=== PATIENT | female | born 1950 | race Caucasian/White ===

== ENCOUNTER 2022-11-12 10:07 | Inpatient (IN) | payer MEDICARE, OTHER ==
[2022-11-12] VITALS (12 sets, daily range): BP systolic 126–177; BP diastolic 63–78; PULSE 55–71; TEMP 97.9–98.4
[~2022-11-12] VITALS: Ht 160 cm; Wt 59.0 kg
[2022-11-12 11:13] LABS: HEMATOCRIT 39.5 % (37.0-47.0); HEMOGLOBIN 13.3 g/dl (12.5-16.0); MEAN CELL VOLUME 88 fl (80.0-100.0); MEAN CORPUSCULAR HEMOGLOBIN 30 pg (27-31); MEAN CORPUSCULAR HGB CONC 34 g/dl (33.0-37.0); MEAN PLATELET VOLUME 9.9 fl (7.4-10.4); PLATELET COUNT 227 K/mm3 (130-400); RED BLOOD COUNT 4.48 M/mm3 (4.10-5.30); REDCELL DISTRIBUTION WIDTH-CV 13.1 % (11.5-14.5)
[2022-11-12] MEDS ORDERED: CRESTOR20 MG PO (11:18)
[2022-11-12] MEDS ORDERED: PRINIVIL20 MG PO (11:19)
[2022-11-12 11:20] LABS: INR 1.1 (0.8-3.0); PROTHROMBIN TIME 12.2 SECONDS (9.7-12.8)
[2022-11-12] MEDS ORDERED: NORVASC 5MG5 MG/TAB PO (11:24)
[2022-11-12] MEDS ORDERED: ASPIRIN E.C. 8181 MG PO (11:24)
[2022-11-12 11:30] LABS: CALCIUM 9.4 mg/dL (8.4-10.2); CREATININE, serum 1.08 mg/dL (0.57-1.11); POTASSIUM 4.3 mmol/L (3.5-4.5)
--- NOTE | 2022-11-12 12:21 | NUR ---
SEE MERGE FOR PROCEDURE, VITAL SIGNS, MEDICATIONS, EQUIPMENT, AND OTHER PROCEDURAL NOTES
--- NOTE | 2022-11-12 13:30 | NUR ---
CLINICAL OUTCOMES MANAGER HAYDEN HAS CALLED MULTIPLE TIMES REGARDING PATIENTS TELEMETRY "BEING PULLED OFF." TELE MONITO ABILIO MADE AWARE RN AND PCT HAVE CHANGE PATIETNS STICKERS AND CHANGED THEIR PLACE MULTIPLE TIMES, EACH TIME TELE MONIOTOR TECH STATES HE STILL CANNOT READ A RYTHM. PER TELE FORESTRY AIDE NEW WIRES ARE NEEDED.
--- NOTE | 2022-11-12 13:45 | NUR ---
PCT CHANGED WIRES FOR PATIENTS TELEMETRY BOX.
--- NOTE | 2022-11-12 13:45 | NUR ---
PATIENT ARRIVED IN STABLE CONDITION. NO NEEDS OR COMPLAINTS AT THIS TIME. DRESSING TO PACEMAKER INSERTION SITE CLEAN DRY AND INTACT. VITAL SIGNES STABLE AT THIS TIME. AT BEDSIDE. PATIENT ORIENTED TO ROOM INCLUDING CALL LIGHT AND PHONE USE. CALL LIGHT WITH IN REACH.
--- NOTE | 2022-11-12 16:40 | NUR ---
THIS RN HAS RECIEVED TWO CALLS FROM BASEBALL INSPECTOR AND REPAIRER [employer]. ADVISED HIM THIS RN IS CURRENTLY IN THE ROOM WITH THE ADMINISTRATIVE SERVICES MANAGER. PATIENTS TELMETRY LEADS AND STICKERS ALL INTACT WITH NO ISSUE. ADVISED HIM IM UNAWARE OF WHAT ELSE WE CAN DO IF WE HAVE REMOVED AND REPLACED AND REARRANGED THE PATIENTS STICKERS MULTIPLE TIMES, WELL CHANGED OUT THE WIRE LEADS. [employer] RESPONDED WITH "WELL IM JUST TELLING YOU I CANT READ IT." T
--- NOTE | 2022-11-12 16:45 | NUR ---
THIS RN WAS JUST NOTIFIED BY THE CHARGE NURSE THAT CHEMICAL PROJECT ENGINEER ERNESTINA BLAKE STATED WE NEED TO COME GET A NEW BOX FOR THIS PATIENT. INFORMED THE TOWN CLERK OF THE PREVIOUS DISCUSSION WITH HIM AND THAT HE DID NTO MENTION THAT TO ME.
--- NOTE | 2022-11-12 22:05 | NUR ---
Pt shift assessment completed at 2044. A&O x4. Very pleasant and denying any pain or discomfort. According to pt, SOB is similar to when she came to the unit, and reports that didn't experience any worsening of the symptoms. Dressing on Left side is CDI. No edema or redness. BP was 177/72 at the time of assessment. All medication, including BP meds were given per emar. Will recheck BP after xray. Around 2099, pt was off the unit for Chest XR. Pt is back to the unit around 2129.
--- NOTE | 2022-11-12 22:30 | NUR ---
Per Cheryl SMITH, verbal orders received to monitor pt VS and any respiratory problem closely due to results showed on Chest XR. (See report). Pt denying any SOB, chest pain or resp. symptoms at this time. Call light is within reach.
--- NOTE | 2022-11-12 22:37 | NUR ---
Monitor pt O2 sats and any sudden chest pain or per verbal orders from LUIS Luna to this ARCHITECTURAL DRAFTSPERSON, due to possible surgical procedure in the morning.
[2022-11-13 03:56] VITALS: BP 147/65; PULSE 66; TEMP 98.3
[2022-11-13 07:00] VITALS: BP 119/71; PULSE 70; TEMP 98.3
--- NOTE | 2022-11-13 07:27 | NUR ---
CALLED RADIOLOGY AND SPOKE WITH ANNALISE, INFORMED HIM THIS PATIENT HAS A SCHEDULED CXR FOR 0700, AND HAS AN ACTIVE LEFT PNEUMOTHORAX THAT WE ARE CHECKING ON. ANNALISE VERBALIZED UNDERSTANDING.
--- NOTE | 2022-11-13 09:21 | NUR ---
ROSSY met with the patient to discuss discharge plan. The patient lives in [place] with her , Kolby (ph#[phone]). She reports independence with ADLs and does not have any DME. The patient's PCP is Dr. Newton Angel and she receives her medications from [facility]. The patient does not have a DPOA-HC, but she was interested in obtaining a form. ROSSY provided. The patient plans to return home with her upon discharge. No additional needs at this time. *Discharge plan: home with *
--- NOTE | 2022-11-13 09:30 | NUR ---
Initial visit; Patient thanked Rail Setter for looking in on her and offering God's blessings. Patient doing well enough to be thinking about being discharged.
--- NOTE | 2022-11-13 10:58 | NUR ---
PATIENT TOLERATED CHEST TUBE PLACEMENT WELL. CHEST TUBE LINE SECURE TO PATIENT. CEHST TUBE CURRENTLY ON CONTINUOUS SUCTION, PER PHYSICIAN ORDER. PATIENT RESTING IN BED. CXR FOR CONFIRMATION COMPLETED.
[2022-11-13 11:00] VITALS: BP 152/72; PULSE 66; TEMP 98
[2022-11-13 15:28] VITALS: BP 128/68; PULSE 70; TEMP 97.5
--- NOTE | 2022-11-13 16:45 | NUR ---
THIS RN WAS INFORMED BY RT THAT THEY PUT HER BACK ON ROOM AIR. I INFORMED RT THAT THE PATIETN IS TO REMAIN ON 2LNC PER THE SECONDARY SPECIAL EDUCATION TEACHER ORDERS, REGARDLESS IF HER O2 SAT INDICATES SHE COULD BE DECREASED OR TAKEN OFF. WILL PASS ALONG TO NIGHT RN. 2LNC REAPPLIED TO PATIENT. PATIENT VERBALIZES UNDERSTANDING OF THIS.
[2022-11-13 20:39] VITALS: BP 141/68; PULSE 73; TEMP 98.5
[2022-11-13 23:38] VITALS: BP 11/54; BP 112/54; PULSE 83; TEMP 98.5
[2022-11-14 04:16] VITALS: BP 122/72; PULSE 57; TEMP 98.1
--- NOTE | 2022-11-14 04:16 | NUR ---
0415 SUCTION DISCONNECTED FROM PATIENTS CHEST TUBE PER NURSES NOTE
[2022-11-14 05:30] VITALS: BP 119/48; PULSE 59; TEMP 98.4
[2022-11-14 07:32] LABS: BASO # 0.1 K/mm3 (0.0-0.2); BASO % 1.1 % (0.0-2.0); EOS # 0.3 K/mm3 (0.0-0.7); EOS % 4.2 % (0.0-4.0); GRAN # 4.2 K/mm3 (1.4-6.5); GRAN % 52.8 % (42.2-75.2); HEMATOCRIT 40.4 % (37.0-47.0); HEMOGLOBIN 13.3 g/dl (12.5-16.0); LYMPH # 2.6 K/mm3 (1.2-3.4); MEAN CELL VOLUME 89 fl (80.0-100.0); MEAN CORPUSCULAR HEMOGLOBIN 29 pg (27-31); MEAN CORPUSCULAR HGB CONC 33 g/dl (33.0-37.0); MEAN PLATELET VOLUME 10.1 fl (7.4-10.4); MONO # 0.7 K/mm3 (0.1-0.6); MONO % 8.5 % (1.7-9.3); PLATELET COUNT 191 K/mm3 (130-400); RED BLOOD COUNT 4.52 M/mm3 (4.10-5.30); REDCELL DISTRIBUTION WIDTH-CV 13.1 % (11.5-14.5)
[2022-11-14 08:01] LABS: CALCIUM 9.2 mg/dL (8.4-10.2); CREATININE, serum 1.14 mg/dL (0.57-1.11); POTASSIUM 4.1 mmol/L (3.5-4.5)
[2022-11-14 08:11] VITALS: BP 122/65; PULSE 71; TEMP 97.9
--- NOTE | 2022-11-14 10:31 | NUR ---
Follow-up visit; Patient was surprised but seemed happy to see Nursing Care Partner again. She said she has another day here because her tube disconnected so they need another night to make certain all is well with her. Nursing Care Partner wished María well and offered God's blessings.
--- NOTE | 2022-11-14 10:42 | NUR ---
Pt Ox4, VSS. Continues on 1L O2 via NC per pulm instruction. Chest tube remains intact to water seal. Placed back on continuous suction @ 75mmHg by Dr. Matthews post CXR. No add'l output to waterseal container. Pt denies SOB. Had c/o discomfort at chest tube insertion site. Place tegaderm to site which alleviated discomfort. Steristrips remain intact to L shoulder pacer incision. Area CDI. Continues on telemetry, Paced 80bpm.
[2022-11-14 11:12] VITALS: BP 112/59; PULSE 73; TEMP 98.1
[2022-11-14 15:52] VITALS: BP 124/66; PULSE 71; TEMP 98.4
[2022-11-14 20:26] VITALS: BP 121/65; PULSE 75; TEMP 98.7
[2022-11-15] VITALS (7 sets, daily range): BP systolic 114–129; BP diastolic 55–71; PULSE 66–88; TEMP 97.3–98.7
--- NOTE | 2022-11-15 04:05 | NUR ---
0403 rn turned off suction for patients chest tube. chest tube still completely intact no parts disconnected.
--- NOTE | 2022-11-15 06:07 | NUR ---
OVERNIGHT PATIENT REPORTED PAIN ONLY ONCE RIGHT BEFORE BED. VITAL SIGNS REMAINED WITHIN NORMAL LIMITS. PT ABLE TO AMBULATE TO RESTROOM WITHOUT ASSISTANCE. CHEST TUBE SUCTION WAS TURNED OFF AT 0403. AT 0530 PT CALLED RN INTO ROOM STATING THAT SHE IS WORRIED THAT SHE COULD HAVE A BLOOD CLOT ON HER LEFT LEG. RN ASSESSED LOCATION AND THERE WAS NO REDNESS OR SWELLING PRESENT AT LOCATION.
[2022-11-15 06:14] LABS: BASO # 0.1 K/mm3 (0.0-0.2); BASO % 1.2 % (0.0-2.0); EOS # 0.4 K/mm3 (0.0-0.7); EOS % 6.3 % (0.0-4.0); GRAN # 3.2 K/mm3 (1.4-6.5); GRAN % 46.1 % (42.2-75.2); HEMATOCRIT 40.9 % (37.0-47.0); HEMOGLOBIN 13.1 g/dl (12.5-16.0); LYMPH # 2.5 K/mm3 (1.2-3.4); MEAN CELL VOLUME 92 fl (80.0-100.0); MEAN CORPUSCULAR HEMOGLOBIN 29 pg (27-31); MEAN CORPUSCULAR HGB CONC 32 g/dl (33.0-37.0); MEAN PLATELET VOLUME 10.1 fl (7.4-10.4); MONO # 0.6 K/mm3 (0.1-0.6); MONO % 9.3 % (1.7-9.3); PLATELET COUNT 184 K/mm3 (130-400); RED BLOOD COUNT 4.46 M/mm3 (4.10-5.30); REDCELL DISTRIBUTION WIDTH-CV 13.2 % (11.5-14.5)
[2022-11-15 06:39] LABS: CALCIUM 9.4 mg/dL (8.4-10.2); CREATININE, serum 0.96 mg/dL (0.57-1.11); POTASSIUM 4.3 mmol/L (3.5-4.5)
--- NOTE | 2022-11-15 10:07 | NUR ---
Follow-up visit; Patient said she was doing better but still has to stay another 48 hours. She wants to make sure she is safe and ready to go home. Program Director [employer] told her she was junior to stay and wished her continued healing and God's blessings. María said her is on him way and thanked Program Director [employer] for checking on her while she's been a patient here.
--- NOTE | 2022-11-15 12:58 | NUR ---
SW asked the hospitalist for PT to be ordered.
--- NOTE | 2022-11-15 20:30 | NUR ---
Initial shift assessment done- denies SOB, o2 at 1L/nc, Pacemaker site clean with steri strips, Chest tube site clean with occlusice drssing intact- CT to suction - tele on, will have CXR in AM. Did request a Tylenol before bed- "just to help me sleep".Denies need for a snack tonight.
[2022-11-16] VITALS (7 sets, daily range): BP systolic 108–127; BP diastolic 52–71; PULSE 61–76; TEMP 97.8–98.7
--- NOTE | 2022-11-16 05:42 | NUR ---
Quiet night- VSS, o2 sats 97%-98% on RA, continues with L/ CT at -20cm suction- no drainage out during the shift supervisor, no requests, denies pain
--- NOTE | 2022-11-16 08:26 | NUR ---
SHIFT ASSESSMENT COMPLETED AND MORNING MEDICATIONS ADMINISTERED PER ORDER. PATIENT IS ALERT AND ORIENTED X4. DENIES PAIN. LUNGS CTA. CHEST TUBE IN PLACE TO SUCTION, FOLLOWING REPORT FROM HS RN, PATIENT'S SUCTION NOTED TO BE AT 20 ON CHEST TUBE DRAIN. PATIENT DENIES ANY SHORTNESS OF BREATH. DENIES NEEDS AT THIS TIME. CALL LIGHT WITHIN REACH.
--- NOTE | 2022-11-16 19:01 | NUR ---
PATIENT IN BED AT THIS TIME. DENIES PAIN OR NEEDS. CHEST TUBE IN PLACE, ON SUCTION. ORDER FOR SUCTION AMOUNT REQUESTED THIS MORNING, PER DR. EUBANKS, PATIENT DOES NOT NEED AN ORDER AND STAFF CAN CONTINUE SUCTION IT IS NOW. SUCTION NOT ADJUSTED BY THIS RN THIS SHIFT. PATIENT DENIES SHORTNESS OF BREATH OR ANY PAIN TO SITE. CALL LIGHT WITHIN REACH.
--- NOTE | 2022-11-16 20:00 | NUR ---
Initial shift assessment done- denies pain but would like some Tylenol to help her sleep- Left chest tube intact to suction -20cm,, pt denies SOB, o2 at 1L/NC.
[2022-11-17 03:10] VITALS: BP 111/64; PULSE 60; TEMP 97.8
--- NOTE | 2022-11-17 06:00 | NUR ---
Quiet night- no requests, VSS, no SOB, o2 sats 97-99% on the 1L/nc, L/ CT remains to suction- no output
[2022-11-17 07:45] VITALS: BP 129/74; PULSE 67; TEMP 97.8
--- NOTE | 2022-11-17 08:09 | NUR ---
SHIFT ASSESSMENT COMPLETED AND MORNING MEDICATIONS ADMINISTERED PER ORDER. PATIENT IS ALERT AND ORIENTED X4. DENIES PAIN. LUNGS CTA. CHEST TUBE IN PLACE. DR. EUBANKS IN THIS MORNING, CHEST TUBE REMOVED FROM SUCTION BY DR. EUBANKS. PER DR. EUBANKS, STAFF TO LEAVE PATIENT OFF SUCTION FOR NOW AND MONITOR FOR SHORTNESS OF BREATH AND CHEST PAIN, PATIENT DENIES BOTH AT THIS TIME. PATIENT DENIES FURTHER NEEDS. CALL LIGHT WITHIN REACH.
[2022-11-17 11:49] VITALS: BP 102/70; PULSE 76; TEMP 98
--- NOTE | 2022-11-17 13:10 | NUR ---
Local Delivery Truck Driver rounds: Patient was in bed with her laptop attempting to login to her caodaism online services. Local Delivery Truck Driver prayed for Patient and for the upcoming orthodoxy service. Local Delivery Truck Driver left Patient so that she could attend online orthodoxy.
[2022-11-17 16:23] VITALS: BP 139/58; PULSE 84; TEMP 98.2
--- NOTE | 2022-11-17 19:06 | NUR ---
PATIENT HAS HAD UNEVENTFUL DAY. DENIES SOB OR PAIN. DENIES NEEDS CALL LIGHT IN PLACE.
[2022-11-17 20:43] VITALS: BP 137/64; PULSE 82; TEMP 97.7
[2022-11-18 00:34] VITALS: BP 103/58; PULSE 66; TEMP 97.5
[2022-11-18 04:11] VITALS: BP 112/57; PULSE 60; TEMP 97.7
--- NOTE | 2022-11-18 07:45 | NUR ---
PER DR WHEELER, PATIETAndrew CHEST TUBE IS OUT, PATIENT IS ALLOWED TO SHOWER, LEAVE PETROLIUM GAUZE IN PLACE, PLACE DRY 2X2 GAUZE ON TOP, THEN TEGADERM AND PATIENT CAN SHOWER.
--- NOTE | 2022-11-18 08:00 | NUR ---
PATIENT CHEST TUBE REMOVAL SITE/DRESSING CLEAN DRY AND ITNACT. DRESSING CHANGED PRDERED BY DEORING SO PATIENT CAN SHOWER. TELE AWARE THAT MOINOTR IS OF FOR SHOWER. PCT TO CALL RN WHEN PATIENT IS FINISHED TO CHECK DRESSING. PATIENT VERBALIZES UNDERSTANDING OF IMPORTANCE OF DRESSING TO REMAIN INTACT AND TO ALESSANDRA IF ANY ISSUES
[2022-11-18 08:03] VITALS: BP 124/66; PULSE 79; TEMP 98.7
--- NOTE | 2022-11-18 11:30 | NUR ---
PATIENT GIVEN DISCHARGE INSTRUCTIONS AND EDUCATION. ALL QUESTIONS ANSWERED. POST PACEMAKER PLACEMENT AND CHEST TUBE REMOVAL INSTRUCTIONS FOR CARE AT HOME REVIEWED. DRESSING TO CHEST TUBE REMOVAL SITE CHANGED BY RN, EDUCATION PROVIDED TO PATIENT AND EXRA DRESSINGS GIVEN TO PATIENT. IV REMOVED, TELE REMOVED PRIOR.
--- NOTE | 2022-11-18 11:45 | NUR ---
PATIENT TAKEN VIA WHEELCHAIR TO ER ENTRANCE BY PCT WHERE SHE LEFT IN STABLE CONDITION IN THE CARE OF HER .
== END 2022-11-18 11:45 | disposition home or self-care (01) | DRG 243 ==
LOC: COL.CAR 10:07 → MEDICAL 13:51 → COL.CAR 11-13 09:49 → MEDICAL 11-13 09:50
PROVIDERS: Internal Medicine Cardiovascular Disease; Physician Assistant; ADMIT Internal Medicine
PROC: 0JH606Z Insertion of Pacemaker, Dual Chamber into Chest Subcutaneous Tissue and Fascia, Open Approach (ICD-10-PCS; principal; 2022-11-13)
PROC: 02H63JZ Insertion of Pacemaker Lead into Right Atrium, Percutaneous Approach (ICD-10-PCS; 2022-11-13)
PROC: 02HK3JZ Insertion of Pacemaker Lead into Right Ventricle, Percutaneous Approach (ICD-10-PCS; 2022-11-13)
PROC: 0W9B30Z Drainage of Left Pleural Cavity with Drainage Device, Percutaneous Approach (ICD-10-PCS; 2022-11-13)
DX: I44.1 Atrioventricular block, second degree (principal); J95.811 Postprocedural pneumothorax; J95.812 Postprocedural air leak; I49.5 Sick sinus syndrome; E78.5 Hyperlipidemia, unspecified; I10 Essential (primary) hypertension; Y83.8 Other surgical procedures as the cause of abnormal reaction of the patient, or of later complication, without mention of misadventure at the time of the procedure; I44.7 Left bundle-branch block, unspecified; F10.90 Alcohol use, unspecified, uncomplicated; I08.1 Rheumatic disorders of both mitral and tricuspid valves; I49.3 Ventricular premature depolarization; E78.00 Pure hypercholesterolemia, unspecified; Z79.82 Long term (current) use of aspirin
CPT/HCPCS: OP; C1785; C1894; C1898; J0690; J2250; J2270; J3010; J7030; Q9967

== ENCOUNTER 2024-07-21 13:49 | Outpatient (CLI) | payer MEDICARE, OTHER ==
[~2024-07-21] VITALS: Ht 160 cm; Wt 61.4 kg
[~2024-07-21 13:49] MED LIST: ASPIRIN E.C. 8181 MG PO; CRESTOR20 MG PO; NORVASC 5MG5 MG/TAB PO; PRINIVIL20 MG PO
[2024-07-21] MEDS ORDERED: Denosumab 60 MG/ML SYRINGE SQ ONE (14:00)
[2024-07-21 14:02] VITALS: BP 130/77; PULSE 70; TEMP 97.6
== END 2024-07-21 14:27 | disposition home or self-care (01) ==
LOC: EUO 13:49
DX: M81.0 Age-related osteoporosis without current pathological fracture (principal)
CPT/HCPCS: J0897